=== PATIENT | female | born 1980 | race Caucasian/White ===

== ENCOUNTER 2021-07-05 14:06 | Observation (INO) | payer OTHER ==
[~2021-07-05] VITALS: Ht 154 cm; Wt 94.0 kg
[2021-07-05] MEDS ORDERED: morphine INJ 10 MG/ML 1ML (SYR OR VIAL) IVP STA (14:07)
--- NOTE | 2021-07-05 14:12 | ED Lower Extremity ---
General Chief Complaint: Lower Extremity Stated Complaint: FALL R ANKLE PAIN Source: patient Exam Limitations: no limitations (ROSELINE MENSAH APRN) History of Present Illness Date Seen by Provider: Jul 05, 2021 Time Seen by Provider: 14:09 Initial Comments to ER by [facility] with reports of a fall at work. 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 She complains of severe right lateral ankle pain. She was placed in a splint IV access was established and she was given 100 mcg of fentanyl in route. Onset: just prior to arrival Severity: moderate Pain/Injury Location: right ankle Method of Injury: fell Modifying Factors: Worse With Movement (ROSELINE MENSAH APRN) Allergies and Home Medications Allergies Coded Allergies: No Known Drug Allergies (Unverified , 07/05/21) Patient Home Medication List Home Medication List Reviewed: Yes (ROSELINE MENSAH APRN) Aspirin (Aspirin EC) 81 Mg Tablet.dr, 81 MG PO BID WITH MEALS Prescribed by: TAMARA TODD MD on 07/06/21 1014 Oxycodone Hcl (Oxyir Tablet) 5 Mg Tab, 5 MG PO Q4H PRN for PAIN-SEVERE (8-10) Prescribed by: TAMARA TODD MD on 07/06/21 1015 Review of Systems Constitutional: see HPI EENTM: see HPI Respiratory: no symptoms reported Cardiovascular: no symptoms reported Genitourinary: no symptoms reported Musculoskeletal: see HPI Skin: no symptoms reported Psychiatric/Neurological: No Symptoms Reported (ROSELINE MENSAH APRN) Physical Exam Vital Signs Vital Signs - First Documented 07/05/21 07/05/21 14:14 14:45 Temp 36.2 Pulse 83 Resp 18 B/P (MAP) 139/93 (108) Pulse Ox 99 O2 Delivery Nasal Cannula O2 Flow Rate 6.00 Capillary Refill : Height, Weight, BMI Height: '" Weight: lbs. oz. kg; BMI Method: General Appearance: WD/WN, no apparent distress HEENT: PERRL/EOMI, normal ENT inspection Respiratory: no respiratory distress, no accessory muscle use Gastrointestinal: normal bowel sounds, non tender Hips: bilateral hip non-tender, bilateral hip normal inspection, bilateral hip normal range of motion Legs: bilateral leg non-tender, bilateral leg normal inspection, bilateral leg normal range of motion Knees: bilateral knee non-tender, bilateral knee normal inspection, bilateral knee normal range of motion Ankles: right ankle pain, right ankle soft tissue tenderness, right ankle swelling, right ankle other (No pain over the proximal fibula, no pain over the metatarsals. Pain is only present over the lateral malleolus. Strong dorsalis pedis pulse.) Feet: bilateral foot non-tender, bilateral foot normal inspection, bilateral foot normal range of motion Neurologic/Psychiatric: alert, normal mood/affect, oriented x 3 Skin: normal color, warm/dry (ROSELINE MENSAH APRN) Procedures/Interventions Patient Education: Explained Benefits, Explained Risks, Pt. Ack. Understanding Agreement on procedure with pt: Yes Breath Sounds per Auscultation: Clear Heart Sounds per Auscultation: Regular Airway Exam: Mouth opens >2 fingers, Neck Full Range of Motion, Visulation of Uvula Sedation Adminstration Time: 14:50 Total Time spent in CS 10 minutes Re-examination Time: 15:07 Re-examination Otherwise healthy female with history of obesity and likely obstructive sleep apnea undiagnosed. Decided to proceed with conscious sedation. She received 100 mcg of fentanyl by EMS and 5 mg of morphine by is here. We gave 10 mg of etomidate IV with partial reduction via traction. X-rays confirmed only partial reduction. She then began to awaken so another 10 mg of etomidate was given with further reduction. We then splinted her with soft roll around the ankle then 4 inch Ortho-Glass. She remains neurovascularly intact at the toe tips at the end of procedure. (ROSELINE MENSAH APRN) Progress/Results/Core Measures Results/Orders Lab Results Laboratory Tests Test 07/05/21 14:43 Range/Units White Blood Count 12.2 H 4.3-11.0 10^3/uL Red Blood Count 4.43 3.80-5.11 10^6/uL Hemoglobin 12.9 11.5-16.0 g/dL Hematocrit 40 35-52 % Mean Corpuscular Volume 89 80-99 fL Mean Corpuscular Hemoglobin 29 25-34 pg Mean Corpuscular Hemoglobin Concent 33 32-36 g/dL Red Cell Distribution Width 12.5 10.0-14.5 % Platelet Count 211 130-400 10^3/uL Mean Platelet Volume 10.2 9.0-12.2 fL Immature Granulocyte % (Auto) 1 % Neutrophils (%) (Auto) 73 42-75 % Lymphocytes (%) (Auto) 19 12-44 % Monocytes (%) (Auto) 7 0-12 % Eosinophils (%) (Auto) 1 0-10 % Basophils (%) (Auto) 0 0-10 % Neutrophils # (Auto) 8.9 H 1.8-7.8 10^3/uL Lymphocytes # (Auto) 2.3 1.0-4.0 10^3/uL Monocytes # (Auto) 0.9 0.0-1.0 10^3/uL Eosinophils # (Auto) 0.1 0.0-0.3 10^3/uL Basophils # (Auto) 0.1 0.0-0.1 10^3/uL Immature Granulocyte # (Auto) 0.1 0.0-0.1 10^3/uL Sodium Level 139 135-145 MMOL/L Potassium Level 3.8 3.6-5.0 MMOL/L Chloride Level 102 98-107 MMOL/L Carbon Dioxide Level 23 21-32 MMOL/L Anion Gap 14 5-14 MMOL/L Glucose Level 125 H 70-105 MG/DL Calcium Level 9.1 8.5-10.1 MG/DL Corrected Calcium 9.0 8.5-10.1 MG/DL Total Protein 7.3 6.4-8.2 GM/DL Albumin 4.1 3.2-4.5 GM/DL Serum Test, Qualitative NEGATIVE NEGATIVE My Orders Orders - ROSELINE MENSAH APRN Morphine Injection (Morphine Injection (07/05/21 14:07) Ankle, Right, 3 Views (07/05/21 14:07) Ankle, Right, 3 Views (07/05/21 14:35) Etomidate Injection (Amidate Injection) (07/05/21 14:45) Ondansetron Injection (Zofran Injectio (07/05/21 14:45) Cbc With Automated Diff (07/05/21 14:35) Comprehensive Metabolic Panel (07/05/21 14:35) Hcg,Qualitative Serum (07/05/21 14:35) Ed Iv/Invasive Line Start (07/05/21 14:35) Protime With Inr (07/05/21 14:35) Etomidate Injection (Amidate Injection) (07/05/21 14:55) Etomidate Injection (Amidate Injection) (07/05/21 15:00) Ankle, Right, 2 Views (07/05/21 15:00) Medications Given in ED Current Medications Medications Dose Ordered Sig/Madeleine Route Start Time Stop Time Status Last Admin Dose Admin Etomidate 10 mg ONCE ONCE IV 07/05/21 14:45 07/05/21 14:46 DC 07/05/21 14:46 10 MG Etomidate 10 mg ONCE ONCE IV 07/05/21 15:00 07/05/21 15:01 DC 07/05/21 14:55 10 MG Ondansetron HCl 4 mg ONCE ONCE IVP 07/05/21 14:45 07/05/21 14:46 DC 07/05/21 14:46 4 MG Vital Signs/I&O 07/05/21 07/05/21 14:14 14:45 Temp 36.2 36.5 Pulse 83 82 Resp 18 18 B/P (MAP) 139/93 (108) 142/84 Pulse Ox 99 94 O2 Delivery Nasal Cannula O2 Flow Rate 6.00 (ROSELINE MENSAH APRN) Departure Communication (Admissions) NAME: ALICIA RODGERS [facility] REC#: [id number] PT STATUS: REG ER : 1980 PHYSICIAN: ROSELINE MENSAH APRN ADMIT DATE: 07/05/21/ER Draft Date of Exam:07/05/21 ANKLE, RIGHT, 3 VIEWS INDICATION: Fall on the ice with right ankle pain. TIME OF EXAM: 2:28 PM. EXAMINATION: Three views of the right ankle were obtained. FINDINGS: There appears to be a trimalleolar fracture as well as a posterior ankle dislocation/subluxation. The talus does appear to be posterior to the articular surface of the distal tibia. There is a transversely oriented fracture through the medial malleolus with significant widening of the medial clear space. There is an obliquely oriented fracture of the distal fibula. There is a large triangular shaped fracture fragment arising from the posterior malleolus of the distal tibia. IMPRESSION: Posterior ankle dislocation/subluxation with trimalleolar fractures, as described. Marked widening of the medial clear space is noted consistent with ligamentous injury. Dictated on workstation # [id number] Dict: 07/05/21 1435 Trans: 07/05/21 1450 E [id number] Interpreted by: DEWEY HAM MD Electronically signed by: NAME: ALICIA RODGERS [facility] REC#: [id number] PT STATUS: REG ER : 1980 PHYSICIAN: ROSELINE MENSAH APRN ADMIT DATE: 07/05/21/ER Draft Date of Exam:07/05/21 ANKLE, RIGHT, 3 VIEWS INDICATION: Fracture post closed reduction. COMPARISON: Exam compared with radiographs earlier this same date. FINDINGS: There has been significant improvement in alignment of horizontal fractures of the distal tibia at the medial malleolus as well as obliquely oriented fractures of the distal fibula and lateral malleolus. Posterior malleolar fragment now is essentially anatomically aligned. Widening of the ankle mortise medially is much improved. There is reduction of the prior dislocation. No adverse change. IMPRESSION: Trimalleolar fractures and markedly improved alignment post closed reduction with no adverse development. Dictated on workstation # [id number] Dict: 07/05/21 1505 Trans: 07/05/21 1510 [id number] Interpreted by: KELLIE GIBBONS Electronically signed by: (ROSELINE MENSAH APRN) Impression Primary Impression: Fracture dislocation of ankle Disposition: ADMITTED INPATIENT Condition: Stable Departure-Patient Inst. Scripts Aspirin (Aspirin EC) 81 Mg Tablet.dr 81 MG PO BID WITH MEALS for 30 Days, #60 TAB 0 Refills Prov: TAMARA TODD MD 07/06/21 Oxycodone Hcl (OXYIR TABLET) 5 Mg Tab 5 MG PO Q4H PRN for PAIN-SEVERE (8-10) for 7 Days, #40 TAB 0 Refills Prov: TAMARA TODD MD 07/06/21 ATTENDING PHYSICIAN NOTE: I was physically present as attending physician in the emergency department du ring the care of this patient, but I was not directly involved in the decision making or delivery of care for this patient. (ERIN FONTENOT MD) ROSELINE MENSAH APRN Jul 05, 2021 14:12 ERIN FONTENOT MD Jul 07, 2021 06:42
[2021-07-05] MEDS ORDERED: ETOMIDATE IV SOLN 20 MG/10 ML VIAL IV ONE ×2 (14:45→15:00)
[2021-07-05] MEDS ORDERED: ONDANSETRON 4 MG/2 ML (SDV) Z0FRAN IVP ONE (14:45)
--- NOTE | 2021-07-05 14:50 | Diagnostic Imaging Report ---
INDICATION: Fall on the ice with right ankle pain. TIME OF EXAM: 2:28 PM. EXAMINATION: Three views of the right ankle were obtained. FINDINGS: There appears to be a trimalleolar fracture as well as a posterior ankle dislocation/subluxation. The talus does appear to be posterior to the articular surface of the distal tibia. There is a transversely oriented fracture through the medial malleolus with significant widening of the medial clear space. There is an obliquely oriented fracture of the distal fibula. There is a large triangular shaped fracture fragment arising from the posterior malleolus of the distal tibia. IMPRESSION: Posterior ankle dislocation/subluxation with trimalleolar fractures, as described. Marked widening of the medial clear space is noted consistent with ligamentous injury. Dictated by: Dictated on workstation # [id number]
[2021-07-05 14:51] LABS: BASOPHILS # (AUTO) 0.1 10^3/uL (0.0-0.1); BASOPHILS % (AUTO) 0 % (0-10); EOSINOPHILS # (AUTO) 0.1 10^3/uL (0.0-0.3); EOSINOPHILS % (AUTO) 1 % (0-10); HEMATOCRIT 40 % (35-52); HEMOGLOBIN 12.9 g/dL (11.5-16.0); LYMPHOCYTES # (AUTO) 2.3 10^3/uL (1.0-4.0); LYMPHOCYTES % (AUTO) 19 % (12-44); MEAN CORPUSCULAR HEMOGLOBIN 29 pg (25-34); MEAN CORPUSCULAR HGB CONC 33 g/dL (32-36); MEAN CORPUSCULAR VOLUME 89 fL (80-99); MEAN PLATELET VOLUME 10.2 fL (9.0-12.2); MONOCYTES # (AUTO) 0.9 10^3/uL (0.0-1.0); MONOCYTES % (AUTO) 7 % (0-12); NEUTROPHILS # (AUTO) 8.9 10^3/uL (1.8-7.8); NEUTROPHILS % (AUTO) 73 % (42-75); PLATELET COUNT 211 10^3/uL (130-400); WHITE BLOOD COUNT 12.2 10^3/uL (4.3-11.0)
[2021-07-05] MEDS ORDERED: ETOMIDATE IV SOLN 20 MG/10 ML VIAL ONE (14:55)
[2021-07-05 15:07] LABS: ALBUMIN 4.1 GM/DL (3.2-4.5)
[2021-07-05 15:08] LABS: POTASSIUM 3.8 MMOL/L (3.6-5.0)
[2021-07-05 15:09] LABS: CALCIUM 9.1 MG/DL (8.5-10.1)
[2021-07-05 15:10] LABS: TOTAL PROTEIN 7.3 GM/DL (6.4-8.2)
--- NOTE | 2021-07-05 15:10 | Diagnostic Imaging Report ---
INDICATION: Fracture post closed reduction. COMPARISON: Exam compared with radiographs earlier this same date. FINDINGS: There has been significant improvement in alignment of horizontal fractures of the distal tibia at the medial malleolus as well as obliquely oriented fractures of the distal fibula and lateral malleolus. Posterior malleolar fragment now is essentially anatomically aligned. Widening of the ankle mortise medially is much improved. There is reduction of the prior dislocation. No adverse change. IMPRESSION: Trimalleolar fractures and markedly improved alignment post closed reduction with no adverse development. Dictated by: Dictated on workstation # [id number]
[2021-07-05 15:12] LABS: BILIRUBIN,TOTAL 0.3 MG/DL (0.1-1.0)
[2021-07-05 15:14] LABS: CREATININE SERUM 0.75 MG/DL (0.60-1.30)
[2021-07-05] MEDS ORDERED: fentaNYL INJ 100 MCG/2 ML AMP ONE (15:17)
[2021-07-05] MEDS ORDERED: fentaNYL INJ 100 MCG/2 ML AMP IVP ONE (15:30)
--- NOTE | 2021-07-05 15:44 | Diagnostic Imaging Report ---
EXAMINATION: Right ankle radiographs, 2 views. COMPARISON: July 05, 2021 at 1428 hours. HISTORY: 41-year-old female, status post reduction. Right ankle pain. FINDINGS: There is a comminuted displaced distal fibular diaphyseal fracture above the level of the tibial plafond which is improved in alignment since the comparison exam. There is also a redemonstrated transversely oriented displaced fracture of the medial malleolus which is also improved in alignment since comparison exam although persistently displaced laterally by approximately 9 mm compared to 13 mm previously. The patient is obliquely positioned. The distal tibia is normally aligned relative to the talus currently. There is a small calcaneal heel spur. There has been placement of overlying cast material. There is interval improved alignment of the previously noted displaced fracture of the posterior malleolus. IMPRESSION: 1. Interval improved alignment of previously noted fractures of the distal fibular diaphysis above the level of the tibial plafond and displaced medial malleolar fracture with persistent displacement of the medial malleolus or fracture. The posterior malleolus fractures potentially improved in alignment and not currently displaced. 2. The tibia is currently normally positioned relative to the talus. Dictated by: Dictated on workstation # [id number]
[2021-07-05] MEDS ORDERED: HYDROmorphone 2 MG/ML VIAL (DILAUDID) IV ONE (15:45)
[2021-07-05 16:55] VITALS: BP 151/81
[2021-07-05] MEDS ORDERED: CATHETER FLUSH 10 ML SYR IV PRN (17:00)
[2021-07-05] MEDS ORDERED: ONDANSETRON 4 MG/2 ML (SDV) Z0FRAN IV PRN (17:00)
[2021-07-05] MEDS ORDERED: cloNIDine 0.1 MG (CATAPRES) TAB PO PRN (17:00)
[2021-07-05] MEDS: LACTATED RINGERS 1,000 ML IV SCH (17:18)
[2021-07-05] MEDS: ACETAMINOPHEN 325 MG TABLET PO PRN (17:35)
[2021-07-05 19:57] LABS: INR 0.9 (0.8-1.4); PROTHROMBIN TIME PATIENT 12.9 SEC (12.2-14.7)
[2021-07-05 20:06] VITALS: BP 117/65
[2021-07-06] VITALS (17 sets, daily range): BP systolic 117–173; BP diastolic 72–122
[2021-07-06] MEDS: HYDROmorphone 2 MG/ML VIAL (DILAUDID) IV PRN ×2 (02:27→05:58)
[2021-07-06] MEDS: LACTATED RINGERS 1,000 ML IV SCH ×5 (02:30→23:48)
[2021-07-06] MEDS ORDERED: ceFAZolin 2 GM IV Premixed 50 ML IV ONE (06:15)
--- NOTE | 2021-07-06 06:40 | History & Physical Orthopedic ---
History and Physical Subjective Date of Exam 07/06/21 Chief Complaint Right Ankle Injury HPI/Events since last exam slip and fall on ice yesterday, immediate pain and deformity of ankle, seen in ER and diagnosed with ankle fracture, underwent provisional closed reduction in ER, admitted as observation to proceed with definitive fixation Medical, Surgical History Hypothyroid Social History Noncontributory Family History Noncontributory Review of Systems - Allergies: Coded Allergies: No Known Drug Allergies (Unverified , 07/05/21) Objective Exam Right Ankle: Splint intact, toes flex and extend, cap refill brisk, sensation intact to light touch grossly Vital Signs Vital Signs Date Time Temp Pulse Resp B/P (MAP) Pulse Ox O2 Delivery O2 Flow Rate FiO2 07/06/21 03:52 36.2 82 19 119/78 (92) 94 Room Air 07/06/21 00:10 36.2 84 19 117/82 (94) 97 Room Air 07/05/21 21:03 36.4 07/05/21 20:06 36.4 92 19 117/65 (82) 95 Room Air 07/05/21 20:00 Room Air 07/05/21 16:55 37.1 87 19 151/81 (104) 98 Room Air 07/05/21 16:29 85 12 135/73 95 Room Air 07/05/21 15:20 36.5 91 12 126/73 99 Room Air 07/05/21 15:15 36.5 84 12 155/93 97 Room Air 07/05/21 15:10 36.5 80 10 147/92 99 Room Air 07/05/21 15:05 36.5 77 19 150/97 100 Nasal Cannula 6.00 07/05/21 15:00 36.5 87 19 147/98 100 Nasal Cannula 6.00 07/05/21 14:55 36.5 78 17 154/93 100 Nasal Cannula 6.00 07/05/21 14:50 36.5 85 18 155/116 99 Nasal Cannula 6.00 07/05/21 14:45 36.5 82 18 142/84 94 Nasal Cannula 6.00 07/05/21 14:14 36.2 83 18 139/93 (108) 99 I & O 07/06/21 06:59 Intake Total 450 ml Output Total 300 ml Balance 150 ml Lab Results Laboratory Tests 07/05/21 14:43: White Blood Count 12.2H, Red Blood Count 4.43, Hemoglobin 12.9, Hematocrit 40, Mean Corpuscular Volume 89, Mean Corpuscular Hemoglobin 29, Mean Corpuscular Hemoglobin Concent 33, Red Cell Distribution Width 12.5, Platelet Count 211, Mean Platelet Volume 10.2, Immature Granulocyte % (Auto) 1, Neutrophils (%) (Auto) 73, Lymphocytes (%) (Auto) 19, Monocytes (%) (Auto) 7, Eosinophils (%) (Auto) 1, Basophils (%) (Auto) 0, Neutrophils # (Auto) 8.9H, Lymphocytes # (Auto) 2.3, Monocytes # (Auto) 0.9, Eosinophils # (Auto) 0.1, Basophils # (Auto) 0.1, Immature Granulocyte # (Auto) 0.1, Sodium Level 139, Potassium Level 3.8, Chloride Level 102, Carbon Dioxide Level 23, Anion Gap 14, Blood Urea Nitrogen 8, Creatinine 0.75, Estimat Glomerular Filtration Rate 103, BUN/Creatinine Ratio 11, Glucose Level 125H, Calcium Level 9.1, Corrected Calcium 9.0, Total Bilirubin 0.3, Aspartate Amino Transf (AST/SGOT) 17, Alanine Aminotransferase (ALT/SGPT) 32, Alkaline Phosphatase 93, Total Protein 7.3, Albumin 4.1, Serum Test, Qualitative NEGATIVE, Acetaminophen Level < 10L 07/05/21 19:12: Prothrombin Time 12.9, INR Comment 0.9 Imaging Multiple views of the right ankle dated 07/05/21 were reviewed from PACS and demonstrated displaced right trimalleolar ankle fracture Assessment and Plan Assessment Right Trimalleolar Ankle Fracture Problem List Right Trimalleolar Ankle Fracture Plan I have recommended open reduction and internal fixation of the right ankle fracture. Nature of the procedure and the postoperative course were discussed. Risks and benefits were discussed. Timeline for healing was discussed. Will plan on her being able to be discharged once pain is tolerable and mobility has improved with crutches or knee scooter. Consent to be obtained. Final Diagonsis Right Trimalleolar Ankle Fracture Level of the visit: Level 3 (preop) TAMARA TODD MD Jul 06, 2021 06:40
[2021-07-06] MEDS ORDERED: BUPIVACAINE 0.25% 30 ML (SENSORCAINE) VIAL ONE (06:47)
[2021-07-06] MEDS ORDERED: LIDOCAINE PF 2% 5 ML (XYLOCAINE) VIAL ONE (07:05)
[2021-07-06] MEDS ORDERED: proPOfol 200 MG/20 ML (DIPRIVAN) VIAL IV ONE (07:05)
[2021-07-06] MEDS ORDERED: fentaNYL INJ 100 MCG/2 ML AMP ONE (07:05)
[2021-07-06] MEDS ORDERED: ONDANSETRON 4 MG/2 ML (SDV) Z0FRAN ONE (07:05)
[2021-07-06] MEDS ORDERED: MIDAZOLAM 2 MG/2 ML (VERSED) VIAL ONE (07:06)
[2021-07-06] MEDS ORDERED: LACTATED RINGERS 1,000 ML IV PRN (07:15)
[2021-07-06] MEDS ORDERED: PHENYLEPHRINE 100 MCG/ML 10 ML (ANESTHESIA) SYR ONE (08:11)
[2021-07-06] MEDS ORDERED: NEO/POLY/BAC (NEOSPORIN) OINT 15 GM TUBE ONE (08:40)
[2021-07-06] MEDS ORDERED: SEVOFLURANE (ULTANE) 15 ML INHAL SOLN ONE ×2 (08:48→09:13)
--- NOTE | 2021-07-06 09:03 | Diagnostic Imaging Report ---
INDICATION: Fluoroscopy for right ankle ORIF. Fluoroscopy was provided in the OR during right ankle ORIF. 52 seconds of fluoroscopic time was utilized. 3 images were obtained demonstrating a lateral plate and screws transecting the distal fibular fracture. There are 2 partially threaded screws transfixing the medial malleolus. Overall alignment is anatomic. The posterior malleolar fractures again noted. IMPRESSION: Fluoroscopy for right ankle ORIF. Dictated by: Dictated on workstation # [id number]
--- NOTE | 2021-07-06 09:36 | Operative Report - Ortho ---
Operative Report Surgeon (s)/Proof Carrier (s) Surgeon TAMARA TODD MD Proof Carrier n/a Pre-Operative Diagnosis Right Trimalleolar Ankle Fracture Post-Operative Diagnosis same Operative Report Date of Procedure: Jul 06, 2021 Name of Procedure Performed: Open Reduction and Internal Fixation of Right Trimalleolar Ankle Fracture Description & Findings After obtaining informed consent and marking the patient, patient did receive intravenous antibiotics. Taken to the operating room and general anesthesia was induced. Surgical timeout was taken. The right lower extremity was prepped and draped in the usual sterile fashion. Attention was initially turned to the fibula fracture, incision was made centered over the fracture. Dissection was carried down to the fracture and a periosteal elevator was used to expose the fibula proximally and distally. The fracture was provisionally reduced using clamps. A [employer] distal fibular plate was selected and placed. A wire was placed distally to position and temporarily hold the plate. A nonlocking screw was placed in the diaphysis of the fibula. A nonlocking screw was then placed distally. C-arm demonstrated good position of the plate with near anatomic reduction of the fracture. Wire was removed. Locking screws were used to fill the distal holes of the plate. Two additional locking screws were placed in the proximal portion of the plate. Wires and clamp were removed. C-arm demonstrated appropriate position of the plate and screws and maintained reduction of the fracture with known posterior butterfly fragment. Attention was turned to the medial side. The medial malleolar fracture required reduction. An incision was made over the fracture. Blunt dissection was carried down to the fracture site. Fracture site was irrigated, curretted, and provisionally reduced. 2 wires were placed through the medial malleolar fragment and across the fracture site. The first wire was anterior and the second wire was posterior. C-arm was used to confirm position of the wires. After drilling the distal cortex, 2 4.0 mm cannulated screws were then placed over the wires. The anterior one measured 44 mm and the posterior one was 40 mm. Wires were removed. Final C-arm images were obtained in the AP, mortise, and lateral views and demonstrated appropriate reduction of the fractures and hardware in good position. The posterior malleolus fragment had reduced into near anatomic position and it was elected to manage it without additional fixation. Images were transferred to PACS. Wounds were irrigated with normal saline. Closed with 0 vicryl, 3-0 vicryl, and a combination of 3-0 and 4-0 nylon. Wounds were injected with local anesthetic. Dressed with xeroform, 4x4s, ABD, cast padding, soft roll, posterior splint, and PAULO wrap. Patient tolerated the procedure well and was stable to the recovery room. Anesthesia Type General Estimated Blood Loss less than 50 mL Specimen(s) collected/removed None TAMARA TODD MD Jul 06, 2021 09:36
[2021-07-06] MEDS ORDERED: morphine INJ 10 MG/ML 1ML (SYR OR VIAL) IVP ONE (09:45)
[2021-07-06] MEDS ORDERED: HYDROmorphone 2 MG/ML VIAL (DILAUDID) IV ONE (09:45)
[2021-07-06] MEDS ORDERED: ONDANSETRON 4 MG/2 ML (SDV) Z0FRAN IVP PRN (09:45)
[2021-07-06] MEDS ORDERED: LABETALOL HCL 20 MG/4 ML VIAL ONE (10:05)
[2021-07-06] MEDS: LABETALOL HCL 20 MG/4 ML VIAL IV PRN ×3 (10:07→10:20)
[2021-07-06] MEDS ORDERED: OXC5T PO (10:14)
[2021-07-06] MEDS ORDERED: ASPI-1238 PO (10:14)
[2021-07-06] MEDS ORDERED: hydrALAZINE (APESOLINE) 20 MG/ML VIAL ONE (10:33)
[2021-07-06] MEDS ORDERED: hydrALAZINE (APESOLINE) 20 MG/ML VIAL IV ONE (10:45)
--- NOTE | 2021-07-06 11:32 | Anesthesia-General Post-Op ---
General Patient Condition Mental Status/LOC: Same as Preop Cardiovascular: Satisfactory Nausea/Vomiting: Absent Respiratory: Satisfactory Pain: Controlled Complications: Absent Post Op Complications Complications None Follow Up Care/Instructions Patient Instructions None needed. Anesthesia/Patient Condition Patient Condition Patient was hypertensive in PACU, given labetalol and hydralazine. Otherwise she was doing well, pain was well controlled without nausea, no apparent adverse anesthesia problems. PHIL PEREA DO Jul 06, 2021 11:31
--- NOTE | 2021-07-06 13:26 | Physical Therapy Evaluation ---
PT Evaluation-General Medical Diagnosis Admission Date Jul 05, 2021 at 15:35 Medical Diagnosis: Fx R ankle Onset Date: Jul 05, 2021 Therapy Diagnosis Therapy Diagnosis: weakness, s/p R ankle fracture Precautions Precautions/Isolations: Fall Prevention, Standard Precautions Weight Bear Status Right Lower Extremity: Right Non Weight Bearing Left Lower Extremity: Left Weight Bearing/Tolerated Referral Reason for Referral: Evaluation/Treatment Medical History Additional Medical History Obesity Current History Patient presented to ER via EMS after a fall at work. Patient was working at [employer] and was taking an order out to a car and slipped and fell and had immediate pain in her ankle. Reviewed History: Yes Social History Home: Single Level Current Living Status: Spouse Entry Into Home: Stairs With Railing PT Steps Into Home: 2 Patient reports she is going to stay with her grandparents who only have two small steps to get into their house. Prior Prior Level of Function SCALE: Activities may be completed with or without assistive devices. 1-Gawdhzwhyc-uzdcdts completes the activity by him/herself with no assistance from a helper. 5-Set-up or Clean-up Assistance-helper sets up or cleans up; patient completes activity. [place] assists only prior to or following the activity. 4-Supervision or Touching Assistance-helper provides verbal cues and/or touching/steadying and/or contact guard assistance as patient completes activity. Assistance may be provided throughout the activity or intermittently. 3-Partial/Moderate Assistance-helper does LESS THAN HALF the effort. [place] lifts, holds or supports trunk or limbs, but provides less than half the effort. 2-Substantial/Maximal Assistance-helper does MORE THAN HALF the effort. [place] lifts or holds trunk or limbs and provides more than half the effort. 6-Imcpgnuzw-xnzzko does ALL the effort. Patient does none of the effort to complete the activity. Or, the assistance of 2 or more helpers is required for the patient to complete the activity. If activity was not attempted, code reason: 7-Patient Refused. 9-Not Applicable-not attempted and the patient did not perform the activity before the current illness, exacerbation or injury. 10-Not Attempted due to Environmental Limitations-(lack of equipment, weather restraints, etc.). 88-Not Attempted due to Medical Conditions or Safety Concerns. Bed Mobility: 6 Transfers (B,C,W/C): 6 Gait: 6 Stairs: 6 Indoor Mobility (Ambulation): Independent Stairs: Independent Prior Devices Use: None PT Evaluation-Current Subjective Patient presented sitting up in bed and agrees to physical therapy. Objective Patient Orientation: Person, Place, Time, Situation Attachments: Cardenas Catheter ROM/Strength ROM Lower Extremities WFL Strength Lower Extremities 4/5 bilateral grossly Integumentary/Posture Bowel Incontinence: No Bladder Incontinence: Cardenas Cath Neuromuscular (Tone, Coordination, Reflexes) Coordination slightly diminished due to recent surgery and pain medications. Sensory Vision: Functional Hearing: Functional Sensation Right Lower Extremit: Intact Sensation Left Lower Extremity: Intact Transfers Sit to Lying (QC): 6 Lying to Sitting/Side of Bed(Q: 6 Sit to Stand (QC): 4 Patient was independent for bed mobility and required CGA for sit to stand transfer. Gait Does the Patient Walk?: Yes Mode of Locomotion: Walk Anticipated Mode of Locomotion: Walk Walk 10 feet (QC): 4 Walk 50 ft with 2 Turns(QC): 4 Distance: 50' Gait Assistive Device: FWW Comments/Gait Description Patient ambulated with FWW and CGA. Patient fatigued quickly due to weakness of her arms. Patient hopped on her L LE while ambulating due to WB status on R LE. Balance Sitting Static: Normal Sitting Dynamic: Normal Standing Static: Normal Standing Dynamic: Normal Assessment/Needs Patient performed bed mobility and ambulated with CGA and FWW. Patient attempted to try and knee scooter but determined that it was not comfortable for her leg pressure. Patient was able to perform hopping on L LE to keep NWB status on RLE. Patient fatigued quickly due to weakness of her UE. Patient is being discharged from therapy due to her current level of function. Rehab Potential: Good PT Senior Care Goals Senior Care Goals PT Armature And Rotor Winder Goals Time Frame: Jul 14, 2021 Roll Left & Right (QC): 6 Sit to Lying (QC): 6 Lying-Sitting on Side/Bed(QC): 6 Sit to Stand (QC): 6 Chair/Wjb-ti-Zxdlj Xfer(QC): 6 Toilet Transfer (QC): 6 Does the Patient Walk: Yes Walk 10 feet (QC): 6 Walk 50ft with 2 Turns (QC): 6 Walk 150 ft (QC): 6 PT Plan Problem List Problem List: Activity Tolerance, Functional Strength, Safety, Balance, Gait, Transfer, Bed Mobility, ROM Treatment/Plan Treatment Plan: Discontinue PT, goals met Treatment Duration: Jul 06, 2021 Frequency: 1 time per week Estimated Hrs Per Day: .5 hour per day Patient and/or Family Agrees t: Yes Safety Risks/Education Patient Education: Gait Training, Safety Issues Teaching Recipient: Patient Teaching Methods: Discussion Time/GCodes Time In: 1310 Time Out: 1320 Total Billed Treatment Time: 10 Total Billed Treatment 1 visit EVLow 10 min KATE BADILLO PT Jul 06, 2021 13:26
[2021-07-06] MEDS: ASPIRIN E.C. 81 MG (ECOTRIN) TAB PO SCH (18:12)
[2021-07-06] MEDS: ACETAMINOPHEN 325 MG TABLET PO PRN (18:13)
[2021-07-07 04:07] VITALS: BP 135/82
[2021-07-07 07:17] VITALS: BP 140/86
[2021-07-07] MEDS: ASPIRIN E.C. 81 MG (ECOTRIN) TAB PO SCH (08:09)
== END 2021-07-07 09:47 | disposition home or self-care (01) ==
LOC: ER 14:07 → 4TH 15:35 → ER 16:29 → 4TH 07-07 08:19
PROVIDERS: ADMIT Orthopaedic Surgery; ATTEND Orthopaedic Surgery
DX: S82.851A Displaced trimalleolar fracture of right lower leg, initial encounter for closed fracture (principal); E66.01 Morbid (severe) obesity due to excess calories; W00.0XXA Fall on same level due to ice and snow, initial encounter; Z68.41 Body mass index [BMI] 40.0-44.9, adult; Z79.891 Long term (current) use of opiate analgesic; Z79.82 Long term (current) use of aspirin
CPT/HCPCS: 27822; 29515; 73600; 73610; 76000; 80053; 84703; 85025; 85610; 87081; 96374; 96375; 97161; 99285; C1713 ×7; G0378; G0480; 36415; 80329

== ENCOUNTER → 2021-07-19 | Outpatient (CLI) | payer OTHER ==
[~2021-07-19] MED LIST: ASPI-1238 PO; OXC5T PO
== END ==
LOC: ORTHO 10:15
PROVIDERS: ATTEND Orthopaedic Surgery
DX: Z47.89 Encounter for other orthopedic aftercare (principal); Z98.890 Other specified postprocedural states

== ENCOUNTER → 2021-08-09 | Outpatient (CLI) | payer OTHER ==
--- NOTE | 2021-08-09 13:23 | Diagnostic Imaging Report ---
EXAMINATION: Right ankle radiographs, 3 views. COMPARISON: July 05, 2021. HISTORY: 41-year-old female, right ankle pain. FINDINGS: There are fixation screws traversing the obliquely oriented fracture involving the base of the medial malleolus. The fixation screws are intact. There is a persistent visualized fracture line without currently identified bony callus bridging. There is sideplate and screw fixation hardware at the level of the distal fibula. There is an obliquely oriented distal fibular fracture extending upwards from the level of the tibial plafond with well visualized fracture line. There is a mild deformity of the posterior malleolus likely relating to prior fracture. The fracture line is difficult to visualize. There is no tibiotalar joint effusion. There is a very small calcaneal heel spur. The alignment of the ankle mortise is grossly unremarkable. IMPRESSION: 1. Intact hardware at the level of the distal fibula and tibia without hardware related complication. 2. There are persistent visible fracture lines involving the medial malleolus and distal fibula without current medication callus bridging. 3. Mild deformity of the posterior malleolus likely relating to prior fracture without gross displacement of the fracture. The fracture line is difficult to visualize currently. Dictated by: Dictated on workstation # [id number]
== END ==
LOC: ORTHO 12:50
PROVIDERS: ATTEND Orthopaedic Surgery
DX: M21.861 Other specified acquired deformities of right lower leg (principal)
CPT/HCPCS: 73610

== ENCOUNTER → 2021-08-30 | Outpatient (CLI) | payer OTHER ==
--- NOTE | 2021-08-30 10:36 | Diagnostic Imaging Report ---
Indication: Followup right ankle fracture. Time of Exam: 10:03 AM Correlation is made prior radiograph from 08/09/2021. Postop changes right ankle with lateral plate and screw chest transfixing distal fibular fracture again noted. There are partially-threaded screws transfixing medial malleolus. Hardware appears intact without fracture or loosening. There is blurring of the fracture lines involving the medial malleolus consistent with healing. There is also blurring of the fibular fracture lines although these do remain partially visible. Ankle mortise is maintained. Talar dome is smooth. IMPRESSION: Status post ankle ORIF. There has been some healing of the distal tibial and fibular fractures, as described. Alignment is anatomic. Dictated by: Dictated on workstation # [id number]
== END ==
LOC: ORTHO 09:53
PROVIDERS: ATTEND Orthopaedic Surgery
DX: S82.891D Other fracture of right lower leg, subsequent encounter for closed fracture with routine healing (principal); X58.XXXD Exposure to other specified factors, subsequent encounter
CPT/HCPCS: 73610

== ENCOUNTER → 2021-09-27 | Outpatient (CLI) | payer OTHER ==
--- NOTE | 2021-09-27 15:09 | Diagnostic Imaging Report ---
Indication: Follow-up ankle fracture. Time of Exam: 12:47 PM Correlation is made with prior radiograph from 08/30/2021. Lateral plate and screws transfix the distal fibular fracture. Two partially threaded screws transfix the medial malleolus. Ankle alignment is normal. The hardware appears intact without fracture or loosening. The fracture lines of the fibula remain visible. Medial malleolar fracture lines appear blurred. The talar dome is smooth. There is generalized soft tissue swelling about the lateral and medial ankle. IMPRESSION: Postop changes of the right ankle, stable when compared with the exam from 08/30/2021. There has been some increase in the degree of soft tissue swelling. Dictated by: Dictated on workstation # [id number]
== END ==
LOC: ORTHO 12:32
PROVIDERS: ATTEND Orthopaedic Surgery
DX: S82.891D Other fracture of right lower leg, subsequent encounter for closed fracture with routine healing (principal); X58.XXXD Exposure to other specified factors, subsequent encounter
CPT/HCPCS: 73610

== ENCOUNTER → 2021-10-25 | Outpatient (CLI) | payer OTHER ==
--- NOTE | 2021-10-25 15:28 | Diagnostic Imaging Report ---
EXAMINATION: Right ankle radiographs, 3 views. COMPARISON: September 27, 2021. HISTORY: 41-year-old female, followup fractures near the level of the right ankle. FINDINGS: There are 2 lag screws traversing the medial malleolus. There is also side plate and screw fixation hardware at the level of the distal fibula. The hardware appears intact. The overall appearance of the medial malleolar fracture is essentially unchanged. There is likely at least some areas of incomplete bridging based on the lateral view. There is a fracture deformity of the distal fibula which appears unchanged. The upper aspect of the fracture is non-bridged best seen on the lateral view. The alignment of the ankle mortise is unremarkable. There is no large tibiotalar joint effusion. There is very mild degenerative type calcaneal enthesopathy. IMPRESSION: 1. Unchanged appearance of the fracture deformities of the medial malleolus and distal fibula with intact hardware. Dictated by: Dictated on workstation # [id number]
== END ==
LOC: ORTHO 13:25
PROVIDERS: ATTEND Orthopaedic Surgery
DX: S82.851D Displaced trimalleolar fracture of right lower leg, subsequent encounter for closed fracture with routine healing (principal); X58.XXXD Exposure to other specified factors, subsequent encounter
CPT/HCPCS: 73610; G0463; 99213

== ENCOUNTER → 2021-11-29 | Outpatient (CLI) | payer OTHER | LOC: ORTHO 12:20 | PROVIDERS: ATTEND Orthopaedic Surgery | DX: Z47.89 Encounter for other orthopedic aftercare (principal) | CPT/HCPCS: 99213 ==